=== PATIENT | female | born 1960 ===

== ENCOUNTER 2018-02-03 09:06 | Emergency (ER) | payer OTHER ==
[2018-02-03 09:12] VITALS: BMI 28.3
[2018-02-03] MEDS ORDERED: Sodium Chloride 0.9% 1,000 ML IV STA (10:23)
[2018-02-03 11:25] LABS: BASO % 0.4 % (0.0-2.0); EOS % 0.5 % (0.0-4.0); HEMOGLOBIN 14.9 g/dL (12.0-16.0); LYMPH # 1.4 K/uL (1.0-4.3); LYMPH % 21.6 % (20.0-40.0); MEAN CELL VOLUME 92.7 fl (81.0-99.0); MEAN CORPUSCULAR HEMOGLOBIN 32.4 pg (27.0-31.0); MEAN CORPUSCULAR HGB CONC 34.9 g/dL (33.0-37.0); MONO # 0.6 K/uL (0.0-0.8); MONO % 9.7 % (0.0-10.0); NEUT # 4.4 K/uL (1.8-7.0); NEUT % 67.8 % (50.0-75.0); NRBC % 0.1 % (0.0-0.0); RBC 4.61 Mil/uL (3.80-5.20); RED CELL DISTRIBUTION WIDTH 12.5 % (11.5-14.5); WHITE BLOOD COUNT 6.5 K/uL (4.8-10.8)
[2018-02-03 11:40] LABS: ALB/GLOB RATIO 1.3 (1.0-2.1); ALBUMIN 4.1 g/dL (3.5-5.0); ALT/SGPT 28 U/L (9-52); AST/SGOT 26 U/L (14-36); BLOOD UREA NITROGEN 11 mg/dl (7-17); CALCIUM 9.3 mg/dL (8.4-10.2); GFR AFRICAN-AMERICAN > 60; GFR NON-AFRICAN AMERICAN > 60; LIPASE 75 U/L (23-300)
[2018-02-03 14:19] LABS: SQUAMOUS EPITHIAL < 1 /hpf (0-5); URINE BILIRUBIN NEGATIVE (NEGATIVE); URINE BLOOD NEGATIVE (NEGATIVE); URINE CLARITY CLEAR (Clear); URINE COLOR STRAW (YELLOW); URINE GLUCOSE (UA) NEG (Normal); URINE LEUKOCYTE ESTERASE NEG Leu/uL (Negative); URINE PROTEIN NEGATIVE (NEGATIVE); URINE UROBILINOGEN 0.2-1.0 mg/dL (0.2-1.0)
[2018-02-03] MEDS ORDERED: Sodium Chloride 0.9% 50 ML IV ONE (14:25)
[2018-02-03] MEDS ORDERED: Iohexol 300 100 ML IJ ONE (14:25)
--- NOTE | 2018-02-03 15:14 | CT ---
PROCEDURE: CT Abdomen and Pelvis with contrast HISTORY: lower abd pain radiating to back COMPARISON: None. TECHNIQUE: Contrast dose: Omnipaque 300, 95 cc Radiation dose: Total exam DLP = 1808.24 mGy-cm. This CT exam was performed using one or more of the following dose reduction techniques: Automated exposure control, adjustment of the mA and/or kV according to patient size, and/or use of iterative reconstruction technique. FINDINGS: LOWER THORAX: Unremarkable. LIVER: Diminished attenuation is appreciated throughout liver compatible with diffuse fatty infiltration. No discrete mass seen throughout the liver or gross intrahepatic biliary dilatation. GALLBLADDER AND BILE DUCTS: Moderate gallbladder distention which is otherwise unremarkable appearing. No radiodense cholelithiasis identified. PANCREAS: Unremarkable. No gross lesion or ductal dilatation. SPLEEN: Unremarkable. ADRENALS: Unremarkable. No mass. KIDNEYS AND URETERS: Unremarkable. No hydronephrosis. No solid mass. VASCULATURE: Unremarkable. No aortic aneurysm. BOWEL: Stomach is collapsed and poorly evaluated. No obstruction. No gross mural thickening. APPENDIX: Normal appendix. PERITONEUM: Unremarkable. No free fluid. No free air. LYMPH NODES: Unremarkable. No enlarged lymph nodes. BLADDER: Unremarkable. REPRODUCTIVE: Unremarkable. BONES: Advanced L5-S1 degenerative disc disease manifest by and endplate degenerative change and disc height loss. No fracture or spondylolisthesis is encountered. OTHER FINDINGS: None. IMPRESSION: Collapse of the left hemicolon spare except for the sigmoid segment limits evaluation the wall. Limited segmental colitis is not excluded involving this segment of colon with the remainder unremarkable. This is a nonspecific pattern could be a function of collapse. Clinically correlate further. Hepatic steatosis. Unremarkable bilateral kidneys. Advanced degenerative disc disease L5-S1.
--- NOTE | 2018-02-03 15:26 | CT ---
PROCEDURE: CT Lumbar Spine without contrast HISTORY: Low back pain COMPARISON: None. TECHNIQUE: Axial computed tomography images were obtained of the lumbar spine without the use of intravenous contrast. Coronal and sagittal reformatted images were created and reviewed. Radiation dose: Total exam DLP = 1808.24 mGy-cm. This CT exam was performed using one or more of the following dose reduction techniques: Automated exposure control, adjustment of the mA and/or kV according to patient size, and/or use of iterative reconstruction technique. FINDINGS: VERTEBRAE: No acute compression fractures no retropulsed fragments. Vertebral bodies exhibit normal stature. Few scattered chronic appearing Schmorl's nodes are present however vertebral bodies otherwise exhibit normal stature. Vertebral bodies and facets normally aligned DISCS/SPINAL CANAL/NEURAL FORAMINA: L1-2: Disc space height maintained. No disc herniation or significant disc bulge. Central canal and exit foramina adequate. . L2-3: Disc space height relatively maintained. No disc herniation. Central canal and exit foramina adequate. . L3-4: Disc space height maintained. No disc herniation however some minimal proximal bilateral foraminal disc. . L4-5: Disc space height maintained. Minimal bulge of the posterior annulus with some minimal proximal bilateral foraminal disc bulging. Overall central canal appears adequate. Facets a prominent. Proximal exit foramina are marginal to minimally narrowed more so on the left side. L5-S1: Degenerative spondylosis with disc space narrowing, endplate eburnation and small chronic Schmorl's node seen along the posterior L5 and S1 endplates. Small amount vacuum phenomena present. No disc herniation or disc bulge. Right exit foramen is stenotic. Left exit foramen marginal to adequate. PARASPINAL SOFT TISSUES: Unremarkable. OTHER FINDINGS: None. IMPRESSION: No acute compression fractures no retropulsed fragments. Minor degenerative spondylosis most notably affecting the L5-S1 level.
[2018-02-03 16:07] VITALS: BP 124/71; PULSE 59; RESP 18; TEMP 98.3; O2SAT 97
--- NOTE | 2018-02-03 16:34 | ED PDOC ---
HPI: Abdomen Time Seen by Provider: 02/03/18 09:18 Chief Complaint (Nursing): Abdominal Pain Chief Complaint (Provider): Pelvic and Back Pain History Per: Patient History/Exam Limitations: no limitations Onset/Duration Of Symptoms: Days (several months, worse today) Current Symptoms Are (Timing): Still Present Additional Complaint(s): 57 year old female presents to the emergency department with complaints of ongoing lower pelvic pain radiating to her lower back. She states the pain has been crampy in nature for several months, but the pain worsened today, [place] to work, prompting her visit. Patient reports her pain is worse when standing or moving around. Otherwise, denies urinary symptoms, fever, weakness, and radiating pain to her legs. PMD: Patient notes she is new to the area from [place] and does not have a PMD here yet. Past Medical History Reviewed: Historical Data, Nursing Documentation, Vital Signs Vital Signs: Last Vital Signs Temp 98.3 F 02/03/18 16:06 Pulse 59 L 02/03/18 16:06 Resp 18 02/03/18 16:06 BP 124/71 02/03/18 16:06 Pulse Ox 97 02/03/18 17:11 - Medical History PMH: No Chronic Diseases - Surgical History Other surgeries: cosmetic tummy tuck - Family History Family History: States: Unknown Family Hx - Home Medications Home Medications: Ambulatory Orders Medication Instructions Recorded Ciprofloxacin [Cipro] 500 mg PO BID #10 tab 02/03/18 Cyclobenzaprine [Cyclobenzaprine 10 mg PO Q8 PRN #9 tab 02/03/18 HCl] Ibuprofen [Motrin Tab] 600 mg PO Q6 PRN #15 tab 02/03/18 traMADol [Ultram] 50 mg PO TID PRN #12 tab 02/03/18 - Allergies Allergies/Adverse Reactions: Allergies Allergy/AdvReac Type Severity Reaction Status Date / Time Penicillins Allergy RASH Verified 02/03/18 09:24 powder Allergy RASH Uncoded 02/03/18 09:25 Review of Systems ROS Statement: Except As Marked, All Systems Reviewed And Found Negative Constitutional: Negative for: Fever, Weakness Gastrointestinal: Positive for: Abdominal Pain (lower pelvic pain radiating to back) Genitourinary Female: Negative for: Dysuria, Frequency Musculoskeletal: Positive for: Back Pain. Negative for: Leg Pain Physical Exam - Reviewed Nursing Documentation Reviewed: Yes Vital Signs Reviewed: Yes - Physical Exam Appears: Positive for: No Acute Distress Head Exam: Positive for: ATRAUMATIC, NORMOCEPHALIC Skin: Positive for: Normal Color, Warm, Dry Eye Exam: Positive for: Normal appearance, EOMI, PERRL Neck: Positive for: Normal, Painless ROM, Supple Cardiovascular/Chest: Positive for: Regular Rate, Rhythm. Negative for: Murmur Respiratory: Positive for: Normal Breath Sounds. Negative for: Accessory Muscle Use, Respiratory Distress Gastrointestinal/Abdominal: Positive for: Soft, Tenderness (mild lower bilaterally) Back: Positive for: Other (Bilateral lumbar hypertonicity and tendernes) Extremity: Positive for: Normal ROM. Negative for: Pedal Edema, Calf Tenderness Neurologic/Psych: Positive for: Alert, Oriented (x3). 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 Time: 1513 PROCEDURE: CT Abdomen and Pelvis with contrast HISTORY: lower abd pain radiating to back COMPARISON: None. TECHNIQUE: Contrast dose: Omnipaque 300, 95 cc Radiation dose: Total exam DLP = 1808.24 mGy-cm. This CT exam was performed using one or more of the following dose reduction techniques: Automated exposure control, adjustment of the mA and/or kV according to patient size, and/or use of iterative reconstruction technique. FINDINGS: LOWER THORAX: Unremarkable. LIVER: Diminished attenuation is appreciated throughout liver compatible with diffuse fatty infiltration. No discrete mass seen throughout the liver or gross intrahepatic biliary dilatation. GALLBLADDER AND BILE DUCTS: Moderate gallbladder distention which is otherwise unremarkable appearing. No radiodense cholelithiasis identified. PANCREAS: Unremarkable. No gross lesion or ductal dilatation. SPLEEN: Unremarkable. ADRENALS: Unremarkable. No mass. KIDNEYS AND URETERS: Unremarkable. No hydronephrosis. No solid mass. VASCULATURE: Unremarkable. No aortic aneurysm. BOWEL: Stomach is collapsed and poorly evaluated. No obstruction. No gross mural thickening. APPENDIX: Normal appendix. PERITONEUM: Unremarkable. No free fluid. No free air. LYMPH NODES: Unremarkable. No enlarged lymph nodes. BLADDER: Unremarkable. REPRODUCTIVE: Unremarkable. BONES: Advanced L5-S1 degenerative disc disease manifest by and endplate degenerative change and disc height loss. No fracture or spondylolisthesis is encountered. OTHER FINDINGS: None. IMPRESSION: Collapse of the left hemicolon spare except for the sigmoid segment limits evaluation the wall. Limited segmental colitis is not excluded involving this segment of colon with the remainder unremarkable. This is a nonspecific pattern could be a function of collapse. Clinically correlate further. Hepatic steatosis. Unremarkable bilateral kidneys. Advanced degenerative disc disease L5-S1. Time: 1524 PROCEDURE: CT Lumbar Spine without contrast HISTORY: Low back pain COMPARISON: None. TECHNIQUE: Axial computed tomography images were obtained of the lumbar spine without the use of intravenous contrast. Coronal and sagittal reformatted images were created and reviewed. Radiation dose: Total exam DLP = 1808.24 mGy-cm. This CT exam was performed using one or more of the following dose reduction techniques: Automated exposure control, adjustment of the mA and/or kV according to patient size, and/or use of iterative reconstruction technique. FINDINGS: VERTEBRAE: No acute compression fractures no retropulsed fragments. Vertebral bodies exhibit normal stature. Few scattered chronic appearing Schmorl's nodes are present however vertebral bodies otherwise exhibit normal stature. Vertebral bodies and facets normally aligned DISCS/SPINAL CANAL/NEURAL FORAMINA: L1-2: Disc space height maintained. No disc herniation or significant disc bulge. Central canal and exit foramina adequate. . L2-3: Disc space height relatively maintained. No disc herniation. Central canal and exit foramina adequate. . L3-4: Disc space height maintained. No disc herniation however some minimal proximal bilateral foraminal disc. . L4-5: Disc space height maintained. Minimal bulge of the posterior annulus with some minimal proximal bilateral foraminal disc bulging. Overall central canal appears adequate. Facets a prominent. Proximal exit foramina are marginal to minimally narrowed more so on the left side. L5-S1: Degenerative spondylosis with disc space narrowing, endplate eburnation and small chronic Schmorl's node seen along the posterior L5 and S1 endplates. Small amount vacuum phenomena present. No disc herniation or disc bulge. Right exit foramen is stenotic. Left exit foramen marginal to adequate. PARASPINAL SOFT TISSUES: Unremarkable. OTHER FINDINGS: None. IMPRESSION: No acute compression fractures no retropulsed fragments. Minor degenerative spondylosis most notably affecting the L5-S1 level. 1600 Patient states pain is better, as she is ambulating and wants to go home. 1620 Patient now notes that she does have urinary frequency, so she will be started on an antibiotic pending the culture results. Discharged to follow up with clinic and all results are discussed with patient. Scribe Attestation: Documented by Emmanuelle Cowart, acting as a scribe for Robinson Cottrell III, DO. Provider Scribe Attestation: All medical entries made by the Scribe were at my direction and personally dictated by me. I have reviewed the chart and agree that the record accurately reflects my personal performance of the history, physical exam, medical decision making, and the department course for this patient. I have also personally directed, reviewed, and agree with the discharge instructions and disposition. Disposition - Clinical Impression Clinical Impression: Pelvic pain, Back pain - Patient ED Disposition Is Patient to be Admitted: No Counseled Patient/Family Regarding: Studies Performed, Diagnosis, Need For Followup, Rx Given - Disposition Referrals: [facility]Outside] [facility] [Outside] Disposition: Routine/Home Disposition Time: 16:01 Condition: STABLE Additional Instructions: Return to ER for any new or worsening symptoms. Followup with the family practice clinic and [facility] DIRECTOR doctor for further testing and definitive diagnosis. FRANDY US, thank you for letting us take care of you today. Your provider was Dr Robinson Cottrell III and you were treated for BACK PAIN. The emergency medical care you received today was directed at your acute symptoms. If you were prescribed any medication, please fill it and take as directed. It may take several days for your symptoms to resolve. Return to the Emergency Department if your symptoms worsen, do not improve, or if you have any other problems. Please contact your doctor or call one of the physicians/clinics you have been referred to that are listed on the Patient Visit Information form that is included in your discharge packet. Bring any paperwork you were given at discharge with you along with any medications you are taking to your follow up visit. Our treatment cannot replace ongoing medical care by a primary care provider outside of the emergency department. Thank you for allowing the [facility] team to be part of your care today. If you had an X-Ray or CT scan: A Radiologist will review the ED reading if any change in treatment is needed we will contact you. If you had a blood, urine, or wound culture: It will take several days for the results, if any change in treatment is needed we will contact you. Prescriptions: Ciprofloxacin [Cipro] 500 mg PO BID #10 tab Cyclobenzaprine [Cyclobenzaprine HCl] 10 mg PO Q8 PRN #9 tab PRN Reason: Muscle Spasm Ibuprofen [Motrin Tab] 600 mg PO Q6 PRN #15 tab PRN Reason: Pain, Moderate (4-7) traMADol [Ultram] 50 mg PO TID PRN #12 tab PRN Reason: Pain, Moderate (4-7) Instructions: Low Back Pain in Adults, Degenerative Disc Disease, Dysuria, Adult (DC), Back Exercises, Chronic Pelvic Pain (DC) Forms: [employer] (Cam[place]onian)
== END 2018-02-03 17:05 | disposition home or self-care (01) ==
LOC: H.ER 09:06
DX: M51.37 Other intervertebral disc degeneration, lumbosacral region (principal); K76.0 Fatty (change of) liver, not elsewhere classified; Z88.0 Allergy status to penicillin
CPT/HCPCS: 72131; 74177; 80053; 81003; 83690; 85025; 87086; 96374; 96375; 96376; 99284; J1885; J2270; J7030; Q9967